=== PATIENT | female | born 1960 | race Caucasian/White ===

== ENCOUNTER 2018-01-15 10:42 | Emergency (ER) | payer MEDICARE, MEDICAID ==
[2018-01-15] MEDS ORDERED: Linezolid 600mg/300mL 600 MG/300 ML BAG IV ONE (11:22)
[2018-01-15] MEDS ORDERED: Azithromycin 500 MG in Sodium Chloride 0.9% 250 ML IV ONE (11:24)
[2018-01-15] MEDS ORDERED: Albuterol/Ipratropium Neb 3 ML AERS HHN ONE ×2 (11:26→11:49)
[2018-01-15 12:06] LABS: ALB/GLOB RATIO 1.1 (1.0-1.8); ALBUMIN 3.8 gm/dL (3.7-5.3); ALKALINE PHOSPHATASE 105 U/L (34-104); ANION GAP 11.1 (7.0-16.0); BILIRUBIN,TOTAL 0.5 mg/dL (0.3-1.0); BUN - UREA NITROGEN 23 mg/dL (7-25); CALCIUM SERUM 9.4 mg/dL (8.6-10.3); CARBON DIOXIDE 26.8 mEq/L (21.0-31.0); CHLORIDE 105 mEq/L (98-107); CREATININE - SERUM 0.8 mg/dL (0.6-1.2); GFR AFRICAN-AMERICAN > 60.0 ml/min (>90); GFR NON AFRICAN-AMERICAN > 60.0 ml/min; GLUCOSE 96 mg/dL (70-105); POTASSIUM SERUM 3.9 mEq/L (3.5-5.1); SGOT 20 U/L (13-39); SGPT/ALT 19 U/L (7-52); SODIUM SERUM 139 mEq/L (136-145); TOTAL PROTEIN,SERUM 7.2 gm/dL (6.0-8.3)
[2018-01-15 12:07] LABS: CHOLESTEROL 245 mg/dL (<200); HDL -HIGH DENSITY LIPOPROTEIN 36 mg/dL (23-92); TRIGLYCERIDES 248 mg/dL (<150)
[2018-01-15 12:12] LABS: ALB/GLOB RATIO 1.2 (1.0-1.8); ALBUMIN 3.8 gm/dL (3.7-5.3); BILIRUBIN,TOTAL 0.5 mg/dL (0.3-1.0); TOTAL PROTEIN,SERUM 7.1 gm/dL (6.0-8.3)
[2018-01-15 12:13] LABS: BILIRUBIN,DIRECT 0.07 mg/dL (0.0-0.2)
[2018-01-15 12:15] LABS: ALLEN TEST Positive; pH 7.38 (7.35-7.45)
[2018-01-15 12:27] LABS: % BASOPHILS 1.4 % (0.0-2.0); % EOSINOPHILS 1.6 % (0.0-5.0); % LYMPHOCYTES 53.2 % (20.0-50.0); % MONOCYTES 8.8 % (2.0-10.0); BASOPHILE ABSOLUTE 0.1 Th/cumm (0-0.2); EOSINOPHILE ABSOLUTE 0.1 Th/cmm (0.1-0.4); HEMATOCRIT 41.9 % (41.0-60); LYMPHOCYTE ABSOLUTE 2.7 Th/cmm (1.5-3.0); MEAN CELL VOLUME 98.1 fl (81-100); MEAN CORPUSCULAR HEMOGLOBIN 32.8 pg (27.0-31.0); MEAN CORPUSCULAR HGB CONC 33.4 pg (28.0-36.0); MEAN PLATELET VOLUME 7.7 fl; MONOCYTE ABSOLUTE 0.4 Th/cmm (0.3-1.0); NEUTROPHILE ABSOLUTE 1.8 Th/cmm (1.8-8.0); PLATELET COUNT 283 Th/cmm (150-400); RED BLOOD COUNT 4.27 Mil/cmm (3.80-5.10); RED CELL DISTRIBUTION WIDTH 12.9 % (11.5-20.0); WHITE BLOOD COUNT 5.1 Th/cmm (4.8-10.8)
--- NOTE | 2018-01-15 12:41 | Diagnostic Imaging Report ---
CHEST X-RAY: AP view INDICATION: Pneumonia COMPARISON: 06/20/2016 FINDINGS: Increased interstitial lung markings are noted. There is elevation left hemidiaphragm. No focal consolidation or effusions. Borderline prominent heart is noted. Degenerative changes of the spine and shoulders are noted. IMPRESSION: Increased interstitial lung markings suggestive of chronic lung changes. Note, pain infiltrate of the right lung base cannot be excluded.
[2018-01-15] MEDS ORDERED: Piperacillin Sodium/Tazobact 3.375 gm Vial IV ONE (15:45)
[2018-01-15 17:04] LABS: A1C % 5.2 % (4.0-6.0)
--- NOTE | 2018-01-15 22:47 | ER Physician Documentation ---
DATE OF SERVICE: 01/15/2018 EMERGENCY ROOM EVALUATION AND TREATMENT HISTORY OF PRESENT ILLNESS: A 57-year-old female patient, 1960 is the date of , the patient is mentally retarded, Down syndrome, full code. The patient is noncommunicative. She has Down syndrome. She does not speak anything. She was sent over here because the patient having chronic respiratory failure, but the patient is not on any intubation or any other respiratory support system. THE PATIENT IS ALLERGIC TO ____. She is a 57-year-old female patient. The patient denies any pain. She does not answer any question. She looks to be very pale, probably she has anemia. Her vital signs show temperature to be 96.8, pulse of 58, respirations of 12, blood pressure 99/58, oxygen saturation 100%, height 5 feet 4 inches, weighing 110 pounds. The patient was sent by Dr. Mendez from [facility], telephone number [phone], that is the number of [facility]. The patient was brought by [facility]. I believe the person who brought here her name was Elisha. The reason the patient sent here was the patient had chronic respiratory failure, hypoxemia. HOSPITAL COURSE: The patient had a trach and the patient is on 2 liters by nasal cannula. The patient has pneumonia, Down syndrome, dysphagia, sepsis, UTI, pancytopenia, asthma. No other history can be available because the patient does not talk, so most of the history that is available is available by getting it from the chart that was sent over here. The patient had a chest central line placement done at 4:07 p.m., admission date was 11/24/2017 at 2:14 p.m. The patient was examined on 11/24/2017 and was finished at 5:13. The patient has a central line placement done and right internal jugular line satisfactory insertion was placed. The patient had a CT scan of the head on 11/25/2017 and central line was done on 11/24/2017. CT scan showed moderate enlargement of the third and the lateral ventricles of uncertain acuity. CT radiation dose reduction techniques used include automatic exposure control and adjustment of kVp and mA according to the patient's size. ____ are available to provide upon the patient's authorization, secure, and video-free using red comment. The patient had abdominal radiograph done. Nasogastric tube was placed. No acute abdominal disease was demonstrated. The bowel gas pattern is nonobstructive. A Dobhoff feeding tube is in place with its tip just within the stomach. No unusual calcification or soft tissue masses are demonstrated. The visualized bones of the lumbar spine and the pelvis are unremarkable for the patient's age. The history was done by, I believe, Dr. Mendez. The patient is readmitted, therefore, pneumonia and vital signs are found to be normal. The patient is adequately built and nourished. Skin has some rashes. Head is normal. Eyes are open. Lungs are ____. Chronic encephalopathy. Meniere's, sepsis, and recently the patient was found to be in hypoxic respiratory failure. PAST HISTORY: Essentially negative. The diagnosis was recurrent aspiration pneumonia and acute hypoxic respiratory failure and MR/CP DS, I am not sure what this MR means, mitral regurgitation or what, I cannot say for sure. The patient's color is pink to whitish. Turgor was good. The patient was sent out to this institution for fungus in the right dorsum of the foot. The patient was given clotrimazole 1% cream once a day for 14 days and then reevaluate. In the back also clotrimazole ointment was applied ____. The patient's current diagnoses: 1. Dysphagia, oropharyngeal phase, uncinate. 2. Unspecified asthma with acute exacerbation. 3. Down syndrome, unspecified. 4. 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 5. Epilepsy, unspecified, not intractable without status epilepticus. 6. Sepsis, unspecified organism. 7. Urinary tract infection. 8. Other pancytopenia. Chest x-ray, which was done on 11/24/2017 showed mild interstitial infiltrates or edema. The labs done at the other [facility] showed white count to be 6.1, hemoglobin 9.8, hematocrit 29.6. Protime was found to be within normal limits. D-dimer was ____, which is very high, but not sure whether the patient has any pulmonary embolism or not. This was on 11/24/2017. Urine was essentially patient had 14 WBCs and no bacteria were seen and urine blood was 2+, not sure whether the patient is menstruating. Electrolytes showed potassium to be 3.1, BUN of 7, creatinine of 0.63. Alkaline phosphatase is normal. Magnesium was normal. Phosphorus was normal. Lactic acid is normal. Cortisol was 7.5. Procalcitonin is 0.74. Hemoglobin A1c is 5.2. BNP is within normal limits. Glucose, etc., essentially within normal limits. Blood cultures are normal. No evidence of any bacterial infection. Culture from the trach site showed the yeast and rare gram-positive cocci were seen. No MRSA was isolated. Blood culture central line negative. Urine culture is no growth. On 11/24/2017, right internal jugular approach central venous catheter tip is in the distal right subclavian vein near the axillary vein. Other findings are unchanged. Suboptimal central line position so if that line is still there, the patient will need to be changed. The patient cannot speak or give any diagnosis. PHYSICAL EXAMINATION: GENERAL: The patient on physical examination has Down syndrome. The patient has a rash in the right leg and the back. Blood gas has been ordered. HEENT: Conjunctivae has been pale. Pupils are equal, reacting to light. The patient is bedbound. CHEST: Reveals fair air entry in both lungs, but occasional rhonchi and rales are present. HEART: Reveals normal heart sounds. No fourth heart sounds. Second heart sound is physiologically split. Third heart sound is absent. ABDOMEN: Soft, otherwise benign and negative. CENTRAL NERVOUS SYSTEM: Normal. CLINICAL IMPRESSION: The patient was sent here for asthma, respiratory failure, has tracheostomy, and the patient was given Tylenol, Keppra, benazepril, Lovenox, ipratropium, albuterol, and Elavil as her treatment. The patient's labs, etc., were sent out. Let us see what we get the results back and then we will decide to see if we can do something about this patient. JOB# [id number]
[2018-01-16 10:17] LABS: IRON LC 108; TIBC (LC) 315; UIBC 207
--- NOTE | 2018-01-16 20:42 | ER Physician Documentation ---
DATE OF SERVICE: 01/15/2018 PROCEDURE: Insertion of triple lumen catheter. PROCEDURE IN DETAIL: The patient needs IV antibiotics and IV fluids. The patient is sick. The patient's doctor is Dr. Mendez. He requested that I insert a triple lumen catheter. The patient has a very short thick neck, hence a triple lumen catheter was done using aseptic technique from the right groin without any complication. The entire procedure was done aseptically as possible. The groin was first scrubbed up with antiseptic lotion and then punctured the femoral vein. Good blood flow was returned and then the 14-gauge needle was removed through which we punctured the femoral vein. Then we made a small yuri on the skin. A wire was inserted through the needle, went in straight, a little part of the wire was left outside, and then inserted the triple lumen, dilated the area and after that triple lumen catheter was inserted. All the three triple lumen catheters were then flushed up with IV connector site. Then, suture was applied to the triple lumen catheter. Then, OpSite dressing was applied and the entire procedure went smoothly. There were no complications. IV ready for use. The triple lumen catheter then was ready for use. The final procedure was insertion of triple lumen catheter from the right groin. This is Dr. Pathak dictating this report as per the request of Dr. Mendez. JOB# [id number]
== END 2018-01-15 19:50 ==
LOC: ER 10:42
DX: A41.9 Sepsis, unspecified organism (principal); J96.11 Chronic respiratory failure with hypoxia; J45.901 Unspecified asthma with (acute) exacerbation; Q90.9 Down syndrome, unspecified; I25.10 Atherosclerotic heart disease of native coronary artery without angina pectoris; G40.909 Epilepsy, unspecified, not intractable, without status epilepticus; D61.818 Other pancytopenia
CPT/HCPCS: 36415-UA; 36600-90; 71045-TC; 80053-TC; 80061-TC; 80076-TC; 82150-TC; 82550-TC; 82728-90; 82803-TC; 83036-90; 83540-90; 83550-90; 83690-TC; 84484-TC; 85025-TC; 93005; 94640; J2001; J2543; J3370; Z7610